=== PATIENT | female | born 1995 | race Caucasian/White ===

== ENCOUNTER 2020-09-29 13:06 | Emergency (ER) | payer BC ==
[~2020-09-29] VITALS: Ht 170.2 cm; Wt 61.2 kg
[2020-09-29 13:10] VITALS: BP 116/64
[2020-09-29] MEDS ORDERED: IBUP-1957 PO (13:57)
--- NOTE | 2020-09-29 14:32 | NUR ---
Patient awake alert non distress xray done .
--- NOTE | 2020-09-29 14:46 | NUR ---
Patient Dc home intruction given agrees to see PMD in [facility] prescrition given .
--- NOTE | 2020-09-29 14:47 | NUR ---
Patient discharged to home in stable condition. Written and verbal after care instructions given. Patient verbalizes understanding of instruction.
== END 2020-09-29 14:48 | disposition home or self-care (01) ==
LOC: ER 13:06
DX: S80.02XA Contusion of left knee, initial encounter (principal); S80.01XA Contusion of right knee, initial encounter; R07.81 Pleurodynia; V49.69XA Unspecified car occupant injured in collision with other motor vehicles in traffic accident, initial encounter; Y93.89 Activity, other specified; Y92.413 State road as the place of occurrence of the external cause; Y99.8 Other external cause status
CPT/HCPCS: 71111-TC; 73564-TC